=== PATIENT | male | born 1950 | race Asian ===

== ENCOUNTER 2016-02-29 09:58 | Day surgery (SDC) | payer MEDICARE, OTHER ==
[~2016-02-29] VITALS: Ht 175.3 cm; Wt 78.5 kg
[~2016-02-29 09:58] MED LIST: ATOR40TA21; LANS15CA19
[2016-02-29 11:10] VITALS: Ht 175.3 cm; Wt 78.5 kg
[2016-02-29] MEDS ORDERED: OMEPRAZOLE (11:18)
[2016-02-29] MEDS ORDERED: ATORVASTATIN (11:18)
[2016-02-29] MEDS ORDERED: METFORMIN (11:18)
[2016-02-29 11:30] VITALS: BP 112/70; PULSE 91; RESP 20
[2016-02-29] MEDS ORDERED: LIDOCAINE 2% (SDV) 5 ML INJ ONE (11:34)
[2016-02-29] MEDS ORDERED: PROPOFOL 40 ML ONE (11:34)
[2016-02-29] MEDS ORDERED: PROPOFOL 20 ML ONE (12:26)
[2016-02-29] MEDS ORDERED: EPHEDrine SULFATE 50 MG/5 ML SYG ONE (12:26)
[2016-02-29 12:38] VITALS: BP 127/68; RESP 20
--- NOTE | 2016-02-29 23:46 | GILP ---
DATE OF PROCEDURE: NAME OF PROCEDURES: 1. Esophagogastroduodenoscopy and biopsy. 2. Colonoscopy and biopsy. SURGEON: Sushma Whitman MD PREOPERATIVE DIAGNOSIS: 1. Peptic ulcer disease. 2. History of malt lymphoma. 3. Screening colonoscopy. POSTOPERATIVE DIAGNOSES: 1. Hiatal hernia. 2. Gastroesophageal reflux disease. 3. Gastritis. 4. Random biopsies were taken for the followup of malt lymphoma. 5. Colonoscopy all the way to the cecum. 6. Small cecal polyp around the appendiceal orifice and biopsies were taken. 7. Internal hemorrhoids. INDICATION FOR THE PROCEDURE: Mr. Lan Aceves is a 66-year-old male patient who had history of b leeding peptic ulcer disease. He also had marked lymphoma for which he has undergone radiation ther apy. The patient was scheduled for a followup exam. He also needed screening colonoscopy. The procedures and possible complications are well explained to the patient, he understood and conse nted to the procedure. DESCRIPTION OF PROCEDURE: Under the influence of anesthesia, the gastroscope was carefully introduc ed into the esophagus and under direct vision, it was advanced to the stomach and through the pyloru s into the duodenal bulb and descending duodenum. FINDINGS: ESOPHAGUS: The patient had hiatal hernia and gastroesophageal reflux disease. STOMACH: The patient had gastritis. Random biopsies were taken for the followup malt lymphoma. DUODENUM: Normal. The colonoscope was carefully introduced in the rectum and under direct vision, it was advanced all the way to the cecum. FINDINGS: The patient had a small polyp around the appendiceal orifice and biopsies were taken for histopathology. The patient was noted to have internal hemorrhoids. He tolerated the procedure very well and there was no complication from the procedures. At the end of the procedures, he was awake with stable vital signs and he was discharged home to the care of [facility]. IMPRESSION: Please see postoperative diagnosis. PLAN: 1. Continue omeprazole. 2. Await histopathology reports. Dictated By: SUSHMA WICK/MEKA Conf#: [id number] DID#: [id number]
== END 2016-02-29 12:30 | disposition home or self-care (01) ==
LOC: GIL 09:58
PROVIDERS: ATTEND Internal Medicine Gastroenterology
DX: Z12.11 Encounter for screening for malignant neoplasm of colon (principal); D12.0 Benign neoplasm of cecum; K44.9 Diaphragmatic hernia without obstruction or gangrene; K21.9 Gastro-esophageal reflux disease without esophagitis; K29.70 Gastritis, unspecified, without bleeding; K64.8 Other hemorrhoids; E11.9 Type 2 diabetes mellitus without complications; E78.5 Hyperlipidemia, unspecified; I25.10 Atherosclerotic heart disease of native coronary artery without angina pectoris; Z98.61 Coronary angioplasty status
CPT/HCPCS: 82962; 88305; 88312